=== PATIENT | male | born 1950 | race Caucasian/White ===

== ENCOUNTER 2018-02-13 13:14 | Inpatient (IN) | payer OTHER ==
[~2018-02-13] VITALS: Ht 193 cm; Wt 76.8 kg
--- NOTE | 2018-02-13 13:15 | NUR ---
[id number], CAME TO ER C/O NON RADIATING CHEST PAIN AND SOB SINCE YESTERDAY. RR IS EVEN AND UNLABORED WITH NAD NOTED. SKIN IS WARM AND DRY. PLACED ON THE MONITOR. WILL CONTINUOUSLY MONITOR THE PATIENT. AWAITING MD FOR EVAL.
[2018-02-13 13:41] LABS: BASOPHILS # (AUTO) 0.1 /CMM (0.0-0.2); BASOPHILS % (AUTO) 1.2 % (0.0-2.0); EOSINOPHILS % (AUTO) 1.4 % (0.0-6.0); HEMATOCRIT 52 % (39-51); LYMPHOCYTES # (AUTO) 1.8 /CMM (0.8-4.8); LYMPHOCYTES % (AUTO) 18.5 % (20.0-44.0); MEAN CORPUSCULAR HEMOGLOBIN 31 PG (26.0-33.0); MEAN CORPUSCULAR HGB CONC 33 g/dl (31.0-36.0); MEAN CORPUSCULAR VOLUME 94 fL (80-96); MONOCYTES # (AUTO) 1.1 /CMM (0.1-1.30); MONOCYTES % (AUTO) 10.9 % (2.0-12.0); NEUTROPHILS # (AUTO) 6.6 /CMM (1.8-8.9); PLATELET COUNT (AUTO) 216 /CMM (150-450); RDW COEFFICIENT OF VARIATION 13.3 (11.5-15.0); RED BLOOD CELL COUNT(AUTO) 5.49 MIL/uL (4.5-6.0); WHITE BLOOD COUNT (AUTO) 9.7 K/uL (4.3-11.0)
[2018-02-13 13:59] LABS: INR 1.01 (0.85-1.15); TROPONIN I < 0.017 ng/mL (0.00-0.056)
[2018-02-13 14:04] LABS: B-TYPE NATRIURETIC PEPTIDE 211 PG/ML (0-125); GLUCOSE 114 mg/dL (74-106); UREA NITROGEN, BLOOD 18 mg/dL (7-18)
[2018-02-13 14:05] LABS: CARBON DIOXIDE 26 mmol/L (21-32); CHLORIDE 103 mmol/L (98-107); POTASSIUM 3.5 mmol/L (3.5-5.1); SODIUM SERUM 128 mmol/L (136-145)
--- NOTE | 2018-02-13 14:20 | NUR ---
PAGED [facility] FOR PANEL - HOT [place] MAN DR. BENAVIDES
[2018-02-13] MEDS ORDERED: LACT1CAP71 PO (14:21)
[2018-02-13] MEDS ORDERED: MULT-447 PO (14:21)
[2018-02-13] MEDS ORDERED: UBID100C13 PO (14:21)
[2018-02-13] MEDS ORDERED: SIMV20TA6 PO (14:21)
--- NOTE | 2018-02-13 14:33 | NUR ---
CALLED NURSE SUP FOR TELE BED
--- NOTE | 2018-02-13 14:45 | NUR ---
PAGED [facility] FOR PANEL - MANAGER APPLIED DR. MARINELLI
--- NOTE | 2018-02-13 15:06 | NUR ---
REPOR GIVEN TO CLEMENT KIRKPATRICK TELE [phone]
--- NOTE | 2018-02-13 15:30 | NUR ---
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 Patient fully admitted, awaiting orders.
[2018-02-13 15:48] VITALS: BP 138/89
[2018-02-13] MEDS ORDERED: MAG HYDROX/AL HYDROX/SIMETH 30 ML UDC PO PRN (16:00)
[2018-02-13] MEDS ORDERED: ONDANSETRON HCL/PF 4 MG/2 ML VIAL IVP PRN (16:00)
[2018-02-13] MEDS ORDERED: Z GUARD REMEDY 2 OZ OINT TP PRN (16:00)
[2018-02-13] MEDS ORDERED: ACETAMINOPHEN 325 MG TABLET PO PRN (16:00)
[2018-02-13] MEDS ORDERED: MAGNESIUM HYDROXIDE 30 ML UDC PO PRN (16:00)
[2018-02-13] MEDS ORDERED: HYDROCODONE/APAP 5/325MG 1 EACH TABLET PO PRN (16:00)
[2018-02-13] MEDS ORDERED: ZOLPIDEM TARTRATE 5 MG TABLET PO PRN (16:00)
--- NOTE | 2018-02-13 17:00 | NUR ---
MS/RN S/B ID Seen by ID - [email or web address] swishes ordered for oral thrush along with diflucan.
[2018-02-13] MEDS: NYSTATIN (PYXIS) 500,000 UNIT/5 ML ORAL.SUSP PO SCH (17:34)
[2018-02-13] MEDS: FLUCONAZOLE (100 MG) 100 MG TABLET PO SCH (17:34)
--- NOTE | 2018-02-13 17:55 | NUR ---
MS/RN S/B Dr Joyce Seen by Dr Joyce - to continue with telemetry monitoring, serial troponins and 2D echo. If all testing remains negative may be discharged home tomorrow. No need for stress test as patient previously had negative stress test in November 2017.
--- NOTE | 2018-02-13 18:19 | NUR ---
MS/RN End note No changes in condition at this time, continues to deny any chest pain or discomfort. All needs addressed, will endores to head lineman.
[2018-02-13 20:00] VITALS: BP 122/74
[2018-02-14] VITALS: BP 119/72
[2018-02-14 04:00] VITALS: BP 116/65
--- NOTE | 2018-02-14 07:00 | NUR ---
TELE FISH HATCHERY MAN CLOSING NOTES PT REMAIN SLEEPING COMFORTABLY IN BED WITHOUT ANY CHEST PAIN OR ANY DISCOMFORT NOTED. TELE SR PER MONITOR . VITAL SIGNS STABLE PRABHAKAR THE NIGHT . KEPT HIM WARM AND COMFORTABLE AT ALL TIMES. ENDORSE TO AM NURSE BRAGA FOR CONTINUITY OF CARE.
[2018-02-14 07:10] LABS: THYROID STIMULATING HORMONE 2.105 uIU/mL (0.358-3.74)
[2018-02-14 07:21] LABS: CALCIUM, SERUM 8.4 mg/dL (8.5-10.1); CREATININE 0.9 mg/dL (0.6-1.3); MAGNESIUM 2.1 mg/dL (1.8-2.4); PHOSPHORUS 3.7 mg/dL (2.5-4.9); POTASSIUM 4.3 mmol/L (3.5-5.1)
--- NOTE | 2018-02-14 07:34 | NUR ---
REFUSE COLLECTOR NOTES PATIENT RECEIVED RESTING INSIDE ROOM. SLEEPING, EASILY AROUSABLE THROUGH VERBAL AND TACTILE STIMULI. BREATHING EVEN AND UNLABORED. NO SOB OR ACUTE DISTRESS NOTED. PATIENT DENIES ANY PAIN OR DISCOMFORT. CONTINUE ON TELEMETRY, BIOINFORMATICS ASSISTANT IN PLACE. IV INTACT AND PATENT, NO SWELLING OR BLEEDING NOTED ON SITE. WILL CONTINUE TO MONITOR. BED LOCKED AND IN LOW POSITION. BILATERAL UPPER SIDE RAILS UP AND LOCKED. CALL LIGHT WITHIN EASY REACH
[2018-02-14 08:00] VITALS: BP 104/68
[2018-02-14] MEDS: FLUCONAZOLE (100 MG) 100 MG TABLET PO SCH (08:19)
[2018-02-14] MEDS: NYSTATIN (PYXIS) 500,000 UNIT/5 ML ORAL.SUSP PO SCH ×3 (08:19→16:27)
[2018-02-14 08:26] LABS: BASOPHILS # (AUTO) 0.1 /CMM (0.0-0.2); BASOPHILS % (AUTO) 0.6 % (0.0-2.0); EOSINOPHILS % (AUTO) 3.7 % (0.0-6.0); HEMATOCRIT 49 % (39-51); HEMOGLOBIN 15.7 g/dL (13.5-17.5); LYMPHOCYTES # (AUTO) 2.3 /CMM (0.8-4.8); LYMPHOCYTES % (AUTO) 25.4 % (20.0-44.0); MEAN CORPUSCULAR HEMOGLOBIN 31 PG (26.0-33.0); MEAN CORPUSCULAR HGB CONC 32 g/dl (31.0-36.0); MEAN CORPUSCULAR VOLUME 97 fL (80-96); MONOCYTES # (AUTO) 0.9 /CMM (0.1-1.30); MONOCYTES % (AUTO) 9.8 % (2.0-12.0); NEUTROPHILS # (AUTO) 5.6 /CMM (1.8-8.9); NEUTROPHILS % (AUTO) 60.5 % (43.0-81.0); PLATELET COUNT (AUTO) 187 /CMM (150-450); RDW COEFFICIENT OF VARIATION 14.2 (11.5-15.0); RED BLOOD CELL COUNT(AUTO) 5.05 MIL/uL (4.5-6.0); WHITE BLOOD COUNT (AUTO) 9.2 K/uL (4.3-11.0)
[2018-02-14] MEDS ORDERED: FLUC200T PO (13:00)
[2018-02-14] MEDS ORDERED: NYST5ORA PO (13:00)
[2018-02-14 16:00] VITALS: BP 126/75
--- NOTE | 2018-02-14 17:00 | NUR ---
Patient lives alone, he is ambulatory and physically active. No dc needs identified at this time. Addendum: 02/14/18 at 1910 by JUSTEN AUGUSTINE RN Amended: Links added.
--- NOTE | 2018-02-14 18:11 | NUR ---
MS RN NOTES PATIENT FOR DISCHARGE HOME TODAY. DISCHARGE EDUCATION AND INSTRUCTIONS GIVEN AND VERBALIZED UNDERSTANDING. IV REMOVED WITH MINIMAL BLEEDING NOTED, PRESSURE DRESSING PLACED. PATIENT AFEBRILE, SKIN DRY AND WARM TO TOUCH. NO CHANGES IN LOC NOTED. PATIENT CALM AND RELAXED. ALL BELONGINGS COMPLETE ON DISCHARGE, NO REPORT OF MISSING INVENTORY. PATIENT LEFT UNIT AT 1800, LEFT VIA WHEELCHAIR IN STABLE CONDITION. NO CHANGES IN LOC NOTED. NO SKIN BREAKDOWN NOTED. PATIENT BREATHING EVEN AND UNLABORED. NO SOB OR ACUTE DISTRESS. DENIES ANY PAIN OR DISCOMFORT. PATIENT ESCORTED OUTSIDE TO PARKING LOT, ASSISTED WITH TRANSFER. PATIENT LEFT VIA PRIVATE CAR. MD MADE AWARE OF DISCHARGE.
== END 2018-02-14 18:11 | disposition home or self-care (01) | DRG 206 ==
LOC: ER 13:16 → TELE 15:05 → MED 02-14 16:43
PROVIDERS: ADMIT Student in an Organized Health Care Education/Training Program; ATTEND Student in an Organized Health Care Education/Training Program
DX: M94.0 Chondrocostal junction syndrome [Tietze] (principal); B37.0 Candidal stomatitis; E87.1 Hypo-osmolality and hyponatremia; E78.5 Hyperlipidemia, unspecified; E03.9 Hypothyroidism, unspecified; H66.92 Otitis media, unspecified, left ear; I34.1 Nonrheumatic mitral (valve) prolapse; Z91.14 Patient's other noncompliance with medication regimen; J44.9 Chronic obstructive pulmonary disease, unspecified; I10 Essential (primary) hypertension; F17.210 Nicotine dependence, cigarettes, uncomplicated; I34.0 Nonrheumatic mitral (valve) insufficiency
CPT/HCPCS: 36415; 71045-TC; 80048-TC; 80061-TC; 83735-TC; 83880; 84100-TC; 84443-TC; 84484-TC; 85025-TC; 85730-TC; 87081-TC; 93307-TC; A4606; Z7610